=== PATIENT | female | born 1995 | race Caucasian/White ===

== ENCOUNTER 2017-02-19 20:07 | Emergency (ER) | payer BC ==
[~2017-02-19] VITALS: Ht 165.1 cm; Wt 127.0 kg
[2017-02-19 20:28] VITALS: BP 128/75
[2017-02-19] MEDS ORDERED: ONDANSETRON 4 MG TAB.RAPDIS SL STA (20:30)
[2017-02-19] MEDS ORDERED: ACETAMINOPHEN 650 MG/20.3 ML UDC PO STA (20:35)
[2017-02-19] MEDS ORDERED: ONDANSETRON 4 MG TAB.RAPDIS ONE ×2 (21:05→21:10)
[2017-02-19] MEDS ORDERED: ACETAMINOPHEN 325 MG TABLET ONE (21:05)
== END 2017-02-19 21:29 | disposition home or self-care (01) ==
LOC: ER 20:10
DX: J11.1 Influenza due to unidentified influenza virus with other respiratory manifestations (principal); Z88.0 Allergy status to penicillin
CPT/HCPCS: 99283; A4606; Q0162 ×2; Z7610

== ENCOUNTER 2017-04-23 19:41 | Emergency (ER) | payer BC, OTHER ==
[~2017-04-23] VITALS: Ht 175.3 cm; Wt 127.9 kg
[2017-04-23 21:00] VITALS: BP 126/76
== END 2017-04-23 23:36 | disposition home or self-care (01) ==
LOC: ER 19:45
DX: S63.92XA Sprain of unspecified part of left wrist and hand, initial encounter (principal); S93.402A Sprain of unspecified ligament of left ankle, initial encounter; Z88.0 Allergy status to penicillin; W01.0XXA Fall on same level from slipping, tripping and stumbling without subsequent striking against object, initial encounter; Y93.89 Activity, other specified; Y92.89 Other specified places as the place of occurrence of the external cause; Y99.0 Civilian activity done for income or pay
CPT/HCPCS: 73130; 73610; 99284; A4606; Z7610

== ENCOUNTER 2021-08-20 11:49 | Emergency (ER) | payer SELFPAY ==
[~2021-08-20] VITALS: Ht 175.3 cm; Wt 145.1 kg
[2021-08-20 11:56] VITALS: BP 132/65
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
--- NOTE | 2021-08-20 13:51 | NUR ---
Patient discharged to home in stable condition. Written and verbal after care instructions given. Patient verbalizes understanding of instruction.
== END 2021-08-20 13:51 | disposition home or self-care (01) ==
LOC: ER 11:52
DX: S80.01XA Contusion of right knee, initial encounter (principal); Z88.0 Allergy status to penicillin; V49.69XA Unspecified car occupant injured in collision with other motor vehicles in traffic accident, initial encounter; Y93.89 Activity, other specified; Y92.413 State road as the place of occurrence of the external cause; Y99.8 Other external cause status
CPT/HCPCS: 73564-TC